=== PATIENT | male | born 1970 | race Caucasian/White ===

== ENCOUNTER 2016-12-13 18:50 | Emergency (ER) | payer OTHER ==
[~2016-12-13] VITALS: Ht 177.8 cm; Wt 80.7 kg
[~2016-12-13 18:50] MED LIST: ALBUTEROL SULF8.5 GM INH; CLOMIPHENE CITR50 MG PO; NORCO 5-325 TA1 EACH ORAL; PROMETHAZINE-C118 M1 ORAL; VALIUM5 MG ORAL; VENLAFAXINE HCL50 MG ORAL
[2016-12-13] MEDS ORDERED: Mylanta II UD 30ml ORAL ONE (19:15)
[2016-12-13] MEDS ORDERED: Lidocaine 2% Visc 15ml soln ORAL ONE (19:15)
[2016-12-13] MEDS ORDERED: Dicyclomine HCl 10mg/5ml oral soln ORAL ONE (19:15)
--- NOTE | 2016-12-13 19:40 | Emergency Room Report ---
History of Present Illness General Chief Complaint: General Complaint Source: Patient Present Illness HPI The patient is a 46-year-old male presenting for 3 days of hiccuping, nausea, and vomiting. The patient denies any medical history. The patient also admits to a burning sensation from the abdomen to the mid chest Described as a 5/10 burning. Patient states he is vomiting mostly clear liquid. The patient has not tried any medications for this. The patient denies any other symptoms including fever, chills, night sweats, headache, dizziness, neck pain or stiffness, shortness of breath, chest pain. Allergies: Coded Allergies: No Known Allergies (Unverified , 04/17/14) Patient History Past Medical History: see triage record Pertinent Family History: none Reviewed Nursing Documentation: PMH: Agreed, PSxH: Agreed Nursing Documentation-PMH Past Medical History: No History, Except For Hx Gastrointestinal Problems: Yes - rectal bleed Review of Systems All Other Systems: negative except mentioned in HPI Physical Exam Vital Signs Date Time Temp Pulse Resp B/P Pulse Ox O2 Delivery O2 Flow Rate FiO2 12/13/16 18:57 98.4 92 14 116/86 100 Room Air Sp02 EP Interpretation: reviewed, normal General Appearance: no apparent distress, alert, GCS 15, non-toxic Head: normocephalic, atraumatic Eyes: bilateral eye PERRL, bilateral eye normal inspection ENT: hearing grossly normal, normal pharynx, no angioedema, normal voice, uvula midline, moist mucus membranes Neck: full range of motion, supple/symm/no masses Respiratory: chest non-tender, lungs clear, normal breath sounds, speaking full sentences Cardiovascular #1: regular rate, rhythm, no edema Gastrointestinal: normal bowel sounds, non tender, soft, non-distended, no guarding, no rebound Neurologic: alert, oriented x3, responsive, motor strength/tone normal, sensory intact, speech normal Psychiatric: judgement/insight normal, memory normal, mood/affect normal, no suicidal/homicidal ideation Skin: normal color, no rash, warm/dry, well hydrated Lymphatic: no adenopathy Medical Decision Making PA Attestation Dr. Naqvi is my supervising physician. Patient management was discussed with my supervising physician Diagnostic Impression: Primary Impression: GERD (gastroesophageal reflux disease) ER Course The patient is a 46-year-old male presenting for 3 days of hiccuping, nausea, and vomiting Differential diagnoses considered: GERD, gastroenteritis, pharyngitis, anxiety Physical exam: Vitals within normal limits. No apparent distress. HEENT exam unremarkable. Abdomen is soft and nontender. Normal bowel sounds. Lungs clear to auscultation bilaterally. Skin warm and dry The patient is given a GI cocktail and Zofran. The hiccuping had stopped and the patient is feeling better. At time of discharge, patient has developed the symptoms again. The patient is then given a shot of Thorazine. The symptoms have again stopped and the patient is discharged home. Patient will be treated for GERD and is also given a prescription for Thorazine. ER precautions are given and the patient will followup with primary doctor. Last Vital Signs Date Time Temp Pulse Resp B/P Pulse Ox O2 Delivery O2 Flow Rate FiO2 12/13/16 18:57 98.4 92 14 116/86 100 Room Air Status: improved Disposition: HOME, SELF-CARE Condition: Improved Scripts Chlorpromazine (Chlorpromazine HCl) 25 Mg Tablet 25 MG PO Q6HR, #12 TAB Prov: ASHER WILKERSON 12/13/16 Ondansetron* (ZOFRAN*) 4 Mg Tablet 4 MG ORAL Q6H Y for Nausea & Vomiting, #15 TAB Prov: ASHER WILKERSON 12/13/16 Famotidine (PEPCID) 40 Mg Tablet 40 MG PO DAILY, #7 TAB 0 Refills Prov: ASHER WILKERSON 12/13/16 Referrals: NON PHYSICIAN (PCP) ASHER WILKERSON Dec 13, 2016 19:40
[2016-12-13] MEDS ORDERED: ZOFRAN4 M3 ORAL (19:46)
[2016-12-13] MEDS ORDERED: PEPCID40 MG PO (19:46)
[2016-12-13 19:54] VITALS: BP 102/60
[2016-12-13] MEDS ORDERED: THORAZINE25 MG PO (20:20)
[2016-12-13 20:25] VITALS: BP 102/60
== END 2016-12-13 20:25 | disposition home or self-care (01) ==
LOC: EMR 19:18
DX: K21.9 Gastro-esophageal reflux disease without esophagitis (principal)
CPT/HCPCS: 96372; 99284; J3230

== ENCOUNTER 2017-12-08 11:11 | Emergency (ER) | payer OTHER ==
[~2017-12-08] VITALS: Ht 177.8 cm; Wt 86.2 kg
[~2017-12-08 11:11] MED LIST changes: +PEPCID40 MG PO; +THORAZINE25 MG PO; +ZOFRAN4 M3 ORAL
[2017-12-08] MEDS ORDERED: [UNRECOGNIZED DRUG - REMARK] (11:27)
[2017-12-08] MEDS ORDERED: VENLAFAXINE HCL25 MG ORAL (11:27)
[2017-12-08] MEDS ORDERED: GABAPENTIN600 MG ORAL (11:30)
[2017-12-08] MEDS ORDERED: ARMOUR THYROID30 MG ORAL (11:30)
--- NOTE | 2017-12-08 12:11 | Emergency Room Report ---
History of Present Illness General Chief Complaint: Pain Source: Patient, Significant Other Present Illness HPI Patient with L jaw, ear pain for several days. Started Friday. Not remember initial event. Has pain opening and closing his mouth and sometimes feels like his teeth are not lining up. No fevers. No change in hearing. Took ibuprofen , but pain is still severe. More with opening and closing mouth and eating/ chewing. No chest pain, cough, dyspnea. No major medical problems. Allergies: Coded Allergies: No Known Allergies (Unverified , 04/17/14) Patient History Past Medical History: see triage record Social History: Denies: smoking Social History Narrative working [employer] Reviewed Nursing Documentation: PMH: Agreed, PSxH: Agreed Nursing Documentation-PMH Hx Gastrointestinal Problems: Yes - rectal bleed History Of Psychiatric Problem: Yes - Depression Review of Systems All Other Systems: negative except mentioned in HPI Physical Exam Vital Signs Date Time Temp Pulse Resp B/P (MAP) Pulse Ox O2 Delivery O2 Flow Rate FiO2 12/08/17 11:19 97.9 90 16 128/86 97 Room Air Sp02 EP Interpretation: reviewed, normal General Appearance: well appearing, no apparent distress Head: normocephalic, atraumatic Eyes: bilateral eye normal inspection, bilateral eye PERRL ENT: hearing grossly normal, normal pharynx, no angioedema, normal voice, TMs + canals normal, uvula midline, moist mucus membranes, other - pain at TMJ when opens mouth, some lateral movement. Not sticking or significant clicking/ crepetance Neck: full range of motion, supple, no meningismus, supple/symm/no masses, tender lateral - near jaw Respiratory: lungs clear, no respiratory distress, speaking full sentences Cardiovascular #1: regular rate, rhythm Gastrointestinal: normal inspection Musculoskeletal: back normal, digits/nails normal, gait/station normal, normal range of motion, no calf tenderness Neurologic: alert, normal gait, grossly normal Psychiatric: mood/affect normal Skin: no rash Lymphatic: no adenopathy Medical Decision Making Diagnostic Impression: Primary Impression: TMJ (temporomandibular joint syndrome) ER Course Patient with ear/jaw/neck pain. Exam c/w TMJ syndrome. No evidence of infection at this time. Ear/TM both normal. Will treat with NSAIDs as well as pain medicine. Patient stable for outpatient observation and treatment. Last Vital Signs Date Time Temp Pulse Resp B/P (MAP) Pulse Ox O2 Delivery O2 Flow Rate FiO2 12/08/17 12:58 97.9 16 128/86 97 Room Air 12/08/17 11:19 90 Status: improved Disposition: HOME, SELF-CARE Condition: Improved Scripts Ibuprofen* (MOTRIN*) 600 Mg Tablet 600 MG ORAL Q6H Y for For Pain, #20 TAB Prov: Rio White M.D. 12/08/17 Tramadol Hcl* (ULTRAM*) 50 Mg Tablet 50 MG ORAL Q6H Y for For Pain, #10 TAB 0 Refills Prov: Rio White M.D. 12/08/17 Referrals: NON PHYSICIAN (PCP) Rio White M.D. Dec 08, 2017 12:11
[2017-12-08] MEDS ORDERED: TRAMADOL HCL50 MG ORAL (12:13)
[2017-12-08] MEDS ORDERED: IBUPROFEN600 MG ORAL (12:13)
[2017-12-08 12:58] VITALS: BP 128/86
== END 2017-12-08 12:59 | disposition home or self-care (01) ==
LOC: EMR 11:34
DX: M26.602 Left temporomandibular joint disorder, unspecified (principal); F32.9 Major depressive disorder, single episode, unspecified
CPT/HCPCS: 99283